=== PATIENT | female | born 1955 | race Caucasian/White ===

== ENCOUNTER 2018-06-05 19:04 | Emergency (ER) | payer MEDICAID, OTHER ==
[~2018-06-05] VITALS: Ht 152.4 cm; Wt 72.9 kg
[2018-06-05 19:07] VITALS: BP 138/83
== END 2018-06-05 20:14 | disposition home or self-care (01) ==
LOC: ED 20:08
DX: S83.92XA Sprain of unspecified site of left knee, initial encounter (principal); W22.03XA Walked into furniture, initial encounter; Y93.E9 Activity, other interior property and clothing maintenance; Y92.89 Other specified places as the place of occurrence of the external cause; Y99.0 Civilian activity done for income or pay
CPT/HCPCS: 29505; 99284